=== PATIENT | male | born 1980 | race Native Hawaiian/Other Pacific Islander ===

== ENCOUNTER 2017-03-03 08:56 | Emergency (ER) | payer OTHER ==
[2017-03-03 09:14] VITALS: RESP 18; O2SAT 99
[2017-03-03 09:54] VITALS: BMI 31.6
[2017-03-03] MEDS ORDERED: TDAP Vaccine 0.5 mL Syr IM ONE (09:56)
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
[2017-03-03 11:37] VITALS: BP 132/89; PULSE 75
[2017-03-03 11:47] VITALS: TEMP 98.2
== END 2017-03-03 11:47 | disposition home or self-care (01) ==
LOC: ED 08:56
DX: S80.811A Abrasion, right lower leg, initial encounter (principal); V23.4XXA Motorcycle driver injured in collision with car, pick-up truck or van in traffic accident, initial encounter; Y92.410 Unspecified street and highway as the place of occurrence of the external cause; M79.641 Pain in right hand; M25.571 Pain in right ankle and joints of right foot

== ENCOUNTER 2018-03-31 13:00 | Emergency (ER) | payer OTHER ==
[2018-03-31 13:00] VITALS: BMI 31.6
[2018-03-31 13:25] VITALS: RESP 18; TEMP 98.5
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
--- NOTE | 2018-03-31 15:40 | RAD ---
Date of service: 03/31/2018 PROCEDURE: Radiographs of the Chest and Left Ribs. HISTORY: R/O FRACTURE COMPARISON: None available. TECHNIQUE: Frontal radiograph of the chest and multiple oblique radiographs of the left ribs were obtained. FINDINGS: LEFT RIBS: No acute fracture or focal lesion visualized. LUNGS: The lungs are well inflated and clear. PLEURA: No pneumothorax or pleural fluid. CARDIOVASCULAR: Normal sized heart. No pulmonary vascular congestion. No aortic atherosclerotic calcification present OTHER FINDINGS: None. IMPRESSION: No acute rib fracture. Clear lungs
[2018-03-31 16:10] VITALS: BP 142/70; PULSE 72; O2SAT 97
== END 2018-03-31 16:05 | disposition home or self-care (01) ==
LOC: ED 13:00
DX: R07.9 Chest pain, unspecified (principal)